=== PATIENT | female | born 1990 | race Caucasian/White ===

== ENCOUNTER 2016-12-12 16:23 | Emergency (ER) | payer MEDICAID ==
[~2016-12-12] VITALS: Ht 170.2 cm; Wt 100.0 kg
[2016-12-12 16:24] VITALS: BP 134/85; PULSE 102; RESP 20; TEMP 98.7; O2SAT 99
[2016-12-12] MEDS ORDERED: BACT800T5 PO (16:37)
[2016-12-12] MEDS ORDERED: CEPH-460 PO (16:37)
--- NOTE | 2016-12-12 16:37 | PD ---
HPI Chief Complaint: Bite or Sting Time Seen by Provider: 16:35 Travel History International Travel<30 days: No Contact w/Intl Traveler<30days: No Traveled to known affect area: No History of Present Illness HPI 26 year-old female presents to emergency department for evaluation of a painful lesion in her left groin. Patient states that she noticed 2 days ago. She thought maybe she had been bitten by an insect. He developed a purulent head and she ruptured this. She has expressed a large amount of purulent drainage from this. It is no longer fluctuant. Denies any fever or chills. Denies any injury. Denies any abdominal pain, nausea, vomiting. No other symptoms to report. PFSH Past Medical History Medical History: Denies Significant Hx ?: Not Social History Tobacco Use: Yes Allergies-Medications (Allergen,Severity, Reaction): Coded Allergies: No Known Allergies (Unverified , 12/12/16) Reported Meds & Prescriptions Reported Meds & Active Scripts Active Keflex (Cephalexin) 500 Mg Cap 500 Mg PO Q6H 5 Days Bactrim DS (Sulfamethoxazole-Trimethoprim) 800-160 Mg Tab 1 Tab PO BID Review of Systems Except as stated in HPI: all other systems reviewed are Neg Physical Exam Narrative GENERAL: Well-nourished, well-developed female patient in no acute distress. SKIN: Focused skin assessment warm/dry. There is a 10 cm in diameter area of erythema in the left inguinal area. There is no significant induration. There is a lesion at the center of this that is open,. I am unable to drain any additional fluid from this. There is no fluctuance to the area. Is marked force further assessment. HEAD: Normocephalic. EYES: No scleral icterus. No injection or drainage. NECK: Supple, trachea midline. No JVD or lymphadenopathy. CARDIOVASCULAR: Regular rate and rhythm without murmurs, gallops, or rubs. RESPIRATORY: Breath sounds equal bilaterally. No accessory muscle use. GASTROINTESTINAL: Abdomen soft, non-tender, nondistended. MUSCULOSKELETAL: No cyanosis, or edema. BACK: Nontender without obvious deformity. No CVA tenderness. Data Data Last Documented VS Vital Signs Date Time Temp Pulse Resp B/P Pulse Ox O2 Delivery O2 Flow Rate FiO2 12/12/16 16:24 98.7 102 20 134/85 99 Room Air Orders Wound Culture And Gram Stain (12/12/16 16:37) [facility] Medical Decision Making Medical Screen Exam Complete: Yes Emergency Medical Condition: Yes Medical Record Reviewed: Yes Differential Diagnosis Cellulitis versus local reaction versus abscess Narrative Course 26 year-old female presents to emergency department for evaluation of lesion her left groin. Physical exam appears to be an abscess that has already drained. Patient will be started on oral antibiotics. She is counseled on care. She agrees to return immediately with any acute worsening of symptoms. Diagnosis Primary Impression: Abscess of left groin Referrals: Primary Care Physician Patient Instructions: Abscess Follow-up (ED), General Instructions Additional Instructions: Warm compresses to the affected area Do not squeeze the area Start antibiotic today and take them until they are all gone Return immediately with any acute worsening symptoms Med/Other Pt SpecificInfo: Prescription(s) given Scripts Cephalexin (Keflex)500 Mg [id number] Mg PO Q6H 5 Days Ref 0 Prov:Kamala Cody 12/12/16 Sulfamethoxazole-Trimethoprim (Bactrim DS)800-160 Mg Tab1 Tab PO BID #20 TAB Ref 0 Prov:Kamala Cody 12/12/16 Disposition: 01 DISCHARGE HOME Condition: Stable Kamala Cody Dec 12, 2016 16:37
== END 2016-12-12 16:51 | disposition home or self-care (01) ==
LOC: NEPK 16:23
DX: L02.214 Cutaneous abscess of groin (principal); Z79.899 Other long term (current) drug therapy; Z72.0 Tobacco use
CPT/HCPCS: 87070; 87107; 87205; 99284

== ENCOUNTER 2017-06-28 12:10 | Emergency (ER) | payer MEDICAID ==
[~2017-06-28 12:10] MED LIST: BACT800T5 PO; CEPH-460 PO
--- NOTE | 2017-06-28 14:57 | PD ---
HPI Chief Complaint abdominal pain Date Seen: Jun 28, 2017 Time Seen: 14:35 Travel History International Travel<30 Days: No Contact w/Intl Traveler<30Days: No Known Affected Area: No History of Present Illness HPI Ms. Roque is a 26-year-old presenting at 28/2 weeks by ultrasound conducted today for abdominal pain. She has not yet been able to establish care due to changes in insurance. She states that her abdominal pain started a few days ago in her lower abdomen. Worse with standing and walking. Says that the pain is off and on. She tried Advil. Also is constipated. No leakage of fluids, no contractions, no vaginal bleeding. She does endorse movement. Weeks Gestation: 28 Para: 1 : 2 History Past Medical History Medical History: Denies Significant Hx Past Surgical History Narrative Surgical Appendectomy at 18yo Family History Family History: Negative Social History Narrative Social History Lives with a friend with her daughter Works at [employer] No alcohol use Smokes 3-4 cigarettes a day Smoked marijuana 2 weeks ago, but has not before or since Alcohol Use: No Tobacco Use: Yes Substance Abuse: Yes Allergies-Medications (Allergen,Severity, Reaction): Coded Allergies: No Known Allergies (Unverified , 12/12/16) Home Meds Active Scripts Cephalexin (Keflex) 500 Mg Cap, 500 MG PO Q6H for Infection for 5 Days, CAP 0 Refills Prov:Kamala Cody 12/12/16 Sulfamethoxazole-Trimethoprim (Bactrim DS) 800-160 Mg Tab, 1 TAB PO BID for Infection, #20 TAB 0 Refills Prov:Kamala Cody 12/12/16 Review of Systems General / Constitutional: No: Fever, Chills Eyes: No: Blurred Vision HENT: No: Headaches Cardiovascular: No: Chest Pain or Discomfort Respiratory: No: Cough, Short of Breath Gastrointestinal: Constipation, No: Nausea, Vomiting, Diarrhea Genitourinary: No: Dysuria Musculoskeletal: No: Weakness Skin: No Rash Neurologic: No: Dizziness Physical Exam Narrative GENERAL: Well-nourished, well-developed patient. SKIN: Warm and dry. HEAD: Normocephalic and atraumatic. EYES: No scleral icterus. No injection or drainage. ENT: No nasal drainage noted. Mucous membranes pink. Airway patent. NECK: Supple, trachea midline. No JVD. CARDIOVASCULAR: Regular rate and rhythm without murmurs, gallops, or rubs. RESPIRATORY: Breath sounds equal bilaterally. No accessory muscle use. BREASTS: Bilateral exam showed no masses , no retractions, no nipple discharge. ABDOMEN/GI: Abdomen soft, non-tender, bowel sounds present, no rebound, no guarding Gravid to 28 weeks size GENITOURINARY: External Genitalia: intact and normal in appearance Cervix: posterior, high Dilatation: 0 Effacement: 0 Station: -3 Membranes: intact Uterine Contractions: none FHT's: Category: 1 Baseline: 150s Reactive: yes Variability: moderate Decels: none EXTREMITIES: No cyanosis or edema. BACK: Nontender without obvious deformity. No CVA tenderness. NEUROLOGICAL: Awake and alert. Motor and sensory grossly within normal limits. Five out of 5 muscle strength in all muscle groups. Normal speech. Data Data Vital Signs Reviewed: Yes Orders Orders Vital Signs (Adult) .ON ADMISSION (06/28/17 13:08) ^ Labor Status (06/28/17 13:08) ^ Non Stress Test (06/28/17 13:08) Us Ob Pelvis >14 Wks Fetus (06/28/17 13:08) MDM Plan 26-year-old at 28/2 presenting with abdominal pain. Due to the description of the pain is most likely round ligament pain. -Due to no care conducted OB US- sets LES to September 18, 2017. Patient is now 28/2 gestation. BPP 8/8 -Cervix is closed, thick, high -Gave information to establish care at [facility] -Advised patient about proper hydration -Advised her to use Colace to help soften stools -Encouraged patient to quit smoking Diagnosis Diagnosis: Primary Impression: Round ligament pain Disposition: DISCHARGE HOME Condition: Stable Alanis Souza MD R1 Jun 28, 2017 14:57
== END 2017-06-28 15:44 | disposition home or self-care (01) ==
LOC: HOBED 12:10
DX: O26.893 Other specified pregnancy related conditions, third trimester (principal); R10.2 Pelvic and perineal pain; O09.33 Supervision of pregnancy with insufficient antenatal care, third trimester; O99.333 Smoking (tobacco) complicating pregnancy, third trimester; F17.210 Nicotine dependence, cigarettes, uncomplicated; Z3A.28 28 weeks gestation of pregnancy
CPT/HCPCS: 76805

== ENCOUNTER 2017-09-23 11:14 | Emergency (ER) | payer MEDICAID ==
[~2017-09-23] VITALS: Ht 170.2 cm; Wt 104.3 kg
--- NOTE | 2017-09-23 11:25 | PD ---
HPI Chief Complaint Possible ROM Date Seen: Sep 23, 2017 Travel History International Travel<30 Days: No Contact w/Intl Traveler<30Days: No Known Affected Area: No History of Present Illness HPI The patient is a 26 year old at 40/5 weeks gestation based on an US done on 07/02 presenting to OB triage due to possible ROM. The patient states she had an episode of clear leakage of fluid this past Saturday night after voiding. She states she has not had further leakage of fluid since then. She denies contractions. Endorses +FM. She denies abnormal vaginal discharge or vaginal bleeding. She specifically denies fevers, chest pain, dyspnea, cough. She has had no care this . Her first was about 6 years ago resulting in a term vaginal delivery. Para: 1 : 2 History Past Medical History Medical History: Denies Significant Hx Obstetric History Obstetric History Prior about 6 years ago resulting in a uncomplicated term vaginal delivery Past Surgical History Narrative Surgical Appendectomy at 18yo Family History Family History: Negative Social History Narrative Social History Lives with a friend with her daughter Works at [employer] No alcohol use Smokes 3-4 cigarettes a day Smoked marijuana 2 weeks ago, but has not before or since Alcohol Use: No Tobacco Use: Yes Substance Abuse: No Allergies-Medications (Allergen,Severity, Reaction): Coded Allergies: No Known Allergies (Unverified , 12/12/16) Home Meds Reported Medications Ranitidine (Zantac) 150 Mg Tab, 150 MG PO DAILY for Reduce Stomach Acid, #30 TAB 0 Refills 09/23/17 Discontinued Scripts Cephalexin (Keflex) 500 Mg Cap, 500 MG PO Q6H for Infection for 5 Days, CAP 0 Refills Prov:Kamala Cody 12/12/16 Sulfamethoxazole-Trimethoprim (Bactrim DS) 800-160 Mg Tab, 1 TAB PO BID for Infection, #20 TAB 0 Refills Prov:Kamala Cody 12/12/16 Review of Systems Except as stated in HPI: all other systems reviewed are Neg Physical Exam Narrative GENERAL: Well-nourished, well-developed patient. SKIN: Warm and dry. HEAD: Normocephalic and atraumatic. EYES: No scleral icterus. No injection or drainage. ENT: No nasal drainage noted. Mucous membranes pink. Airway patent. NECK: Supple, trachea midline. No JVD. CARDIOVASCULAR: Regular rate and rhythm without murmurs, gallops, or rubs. RESPIRATORY: Breath sounds equal bilaterally. No accessory muscle use. ABDOMEN/GI: Abdomen soft, non-tender, bowel sounds present, no rebound, no guarding Gravid to 40 weeks size GENITOURINARY: External Genitalia: intact and normal in appearance Cervix: posterior Dilatation: closed Effacement: thick Station: High Presentation: [-] Membranes: intact Uterine Contractions: none FHT's: Category: I Baseline: 140s Reactive: +accels Variability: moderate Decels: none noted EXTREMITIES: No cyanosis or edema. BACK: Nontender without obvious deformity. No CVA tenderness. NEUROLOGICAL: Awake and alert. Motor and sensory grossly within normal limits. Normal speech. Data Data Vital Signs Reviewed: Yes [facility] Medical Record Reviewed: Yes Plan 26 year old at 40/5 weeks gestation with no care presented to OB triage with complaints of possible ROM. 1. IUP - Category I tracing - No contractions on tocometer - Cervix: closed, long and thick - Bedside ultrasound performed by Dr. Juarez demonstrated vertex presentation - Amnisure negative - Labor precautions reviewed with patient and patient instructed on when to return to the OB ED 2. No care - Will draw labs - Check rapid GBS - Informed patient that if she does go into spontaneous labor and deliver by next Saturday to present back to OB triage for an induction of labor. Patient was instructed to come back sooner at anytime if needed - Addendum: The patient did not provide enough of a urine sample in order to run GC&chlamydia PCR via urine and left home prior to re-obtaining a sample for this. Plan to recheck if patient presents back to OB triage or on next Saturday when returning for induction of labor if not seen in spontaneous labor prior to then. dw Dr. Fu and Dr. Hardy Diagnosis Diagnosis: Primary Impression: 40 weeks gestation of Disposition: DISCHARGE HOME Condition: Stable Chencho Lopez MD R2 Sep 23, 2017 11:25
[2017-09-23 11:36] VITALS: BP 148/76; PULSE 110
[2017-09-23 11:52] VITALS: TEMP 98.3
[2017-09-23 11:54] VITALS: BP 157/81; PULSE 94
[2017-09-23] MEDS ORDERED: ZANT150T2 PO (11:57)
[2017-09-23 12:31] LABS: AUTOMATED NEUTROPHIL # 7.1 TH/MM3 (1.8-7.7); BASOPHIL % 0.3 % (0.0-2.0); EOSINOPHIL # 0.1 TH/MM3 (0-0.4); EOSINOPHIL % 0.7 % (0.0-4.0); HEMATOCRIT 36.4 % (35.0-46.0); HEMOGLOBIN 12.1 GM/DL (11.6-15.3); LYMPH % 14.9 % (9.0-44.0); LYMPHOCYTE # 1.4 TH/MM3 (1.0-4.8); MEAN CELL VOLUME 83.3 FL (80.0-100.0); MEAN CORPUSCULAR HEMOGLOBIN 27.7 PG (27.0-34.0); MEAN CORPUSCULAR HGB CONC 33.3 % (32.0-36.0); MONO % 8.5 % (0.0-8.0); MONOCYTE # 0.8 TH/MM3 (0-0.9); NEUT % 75.6 % (16.0-70.0); PLATELET COUNT 299 TH/MM3 (150-450); RED BLOOD COUNT 4.38 MIL/MM3 (4.00-5.30); RED CELL DISTRIBUTION WIDTH 14.9 % (11.6-17.2); WHITE BLOOD COUNT 9.4 TH/MM3 (4.0-11.0)
[2017-09-23 12:58] LABS: BACTERIA, URINE OCC /hpf; BILIRUBIN, URINE NEG (NEG); BLOOD, URINE NEG (NEG); GLUCOSE,URINE NEG (NEG); KETONE, URINE NEG (NEG); MUCUS URINE FEW /lpf (OCC); NITRITE,URINE NEG (NEG); PH, URINE 6.5 (5.0-8.5); SQUAMOUS EPITHELIAL CELL URINE 10 /hpf (0-5); URINE COLOR YELLOW (YELLW/STRAW); URINE LEUKOCYTE ESTERASE SMALL (NEG)
== END 2017-09-23 13:38 | disposition home or self-care (01) ==
LOC: HOBED 11:14
DX: O26.893 Other specified pregnancy related conditions, third trimester (principal); O99.333 Smoking (tobacco) complicating pregnancy, third trimester; F17.210 Nicotine dependence, cigarettes, uncomplicated; O99.323 Drug use complicating pregnancy, third trimester; F12.90 Cannabis use, unspecified, uncomplicated; Z3A.40 40 weeks gestation of pregnancy
CPT/HCPCS: 36415; 59025; 76815; 80074; 81001; 84112; 85025; 86592; 86703; 86762; 86850; 86900; 86901; 87081

== ENCOUNTER 2017-09-30 05:45 | Inpatient (IN) | payer MEDICAID ==
[~2017-09-30] VITALS: Ht 170.2 cm; Wt 104.0 kg
[2017-09-30] VITALS (54 sets, daily range): BP systolic 61–145; BP diastolic 47–103; PULSE 68–117; RESP 16–21; TEMP 97.6–98.3
[~2017-09-30 05:45] MED LIST changes: -BACT800T5 PO; -CEPH-460 PO; +ZANT150T2 PO
[2017-09-30] MEDS ORDERED: LACTATED RINGER'S 1000 ML INJ 1,000 ML IV PRN (06:04)
[2017-09-30] MEDS ORDERED: LACTATED RINGER'S 1000 ML INJ 1,000 ML IV SCH (06:04)
[2017-09-30] MEDS ORDERED: MINERAL OIL 10 ML VIAL TOPICAL PRN (06:15)
[2017-09-30] MEDS ORDERED: OXYTOCIN 30 UNITS-500ML PREMIX 500 ML IV ONE (06:15)
[2017-09-30] MEDS ORDERED: CITRIC ACID-SODIUM CITRATE LIQ 30 ML UDC PO SCH (06:15)
[2017-09-30] MEDS ORDERED: SODIUM CHLORID 0.9% 500 ML INJ 500 ML IV PRN (06:15)
[2017-09-30] MEDS ORDERED: LIDOCAINE HCL 1% 50 ML VIAL I-DERMAL PRN (06:15)
[2017-09-30] MEDS ORDERED: LIDOCAINE HCL 1% 50 ML VIAL INFIL PRN (06:15)
[2017-09-30] MEDS ORDERED: SODIUM CHLOR 0.9% 1000 ML INJ 1,000 ML IV PRN (06:24)
[2017-09-30] MEDS ORDERED: PRENTAB7 PO (06:32)
--- NOTE | 2017-09-30 06:53 | HHI.HP ---
HPI Chief Complaint Here for induction of labor Date Seen: September 30, 2017 Time Seen: 06:40 Travel History International Travel<30 Days: No Contact w/Intl Traveler<30Days: No Known Affected Area: No History of Present Illness HPI Patient is 26-year-old 41-42 weeks here now for induction of labor due to postdates, patient said no regular care with this . She did have an ultrasound in June that dated her done elsewhere, she presented here week ago for possibly leaking fluid found to be intact at that time because she was overdue at that point gave her 1 week to go into labor which did not happen ,now she is 41 weeks 5 days . She is not kaden at this time and her NST is reactive Weeks Gestation: 41 Para: 1 : 2 History Obstetric History Obstetric History 1 vaginal delivery Past Surgical History Narrative Surgical Appendectomy Family History Family History: Social History Alcohol Use: No Tobacco Use: Yes Substance Abuse: No Allergies-Medications (Allergen,Severity, Reaction): Coded Allergies: No Known Allergies (Unverified Allergy, Unknown, 09/30/17) Home Meds Reported Medications Pnv No.95/Ferrous Fum/Folic AC ( Vitamins Tablet) 28 Mg Iron-800 Mcg Tablet, 1 PO DAILY 09/30/17 Ranitidine (Zantac) 150 Mg Tab, 150 MG PO DAILY for Reduce Stomach Acid, #30 TAB 0 Refills 09/23/17 Discontinued Scripts Cephalexin (Keflex) 500 Mg Cap, 500 MG PO Q6H for Infection for 5 Days, CAP 0 Refills Prov:Kamala Cody 12/12/16 Sulfamethoxazole-Trimethoprim (Bactrim DS) 800-160 Mg Tab, 1 TAB PO BID for Infection, #20 TAB 0 Refills Prov:Kamala Cody 12/12/16 Review of Systems General / Constitutional: No: Fever, Weight Gain, Chills, Other Eyes: No: Diploplia, Blurred Vision, Visual changes, Pain, Photophobia HENT: No: Headaches, Vertigo, Lightheadedness Cardiovascular: No: Irregular Rhythm, Chest Pain or Discomfort, Palpitations, Tachycardia, Syncope, Varicosities, Edema, Cyanosis Respiratory: No: Cough, Short of Breath, Other Gastrointestinal: No: Nausea, Vomiting, Diarrhea Genitourinary: No: Decreased Urinary Output, Oliguria Musculoskeletal: No: Limited ROM, Weakness, Cramping, Edema, Pain Skin: No Rash, No Itching, No Dryness, No Lumps, No Change in Pigmentation, No Change in Nails, No Alopecia, No Lesions Neurologic: No: Weakness, Dizziness, Syncope, Focal Abnormalities, Coordination Problem, Headache, Slurred Speech, Seizures Psychiatric: No: Depression, Suicidal Ideations, Homicidal Ideation Endocrine: No: Heat Intolerance, Cold Intolerance, Polydipsia, Polyuria, Other Physical Exam Vital Signs Date Time Temp Pulse Resp B/P (MAP) Pulse Ox O2 Delivery O2 Flow Rate FiO2 09/30/17 06:40 82 145/84 (104) 09/30/17 06:13 90 143/82 (102) 09/30/17 06:13 97.7 20 Narrative GENERAL: Well-nourished, well-developed obese patient. SKIN: Warm and dry. HEAD: Normocephalic and atraumatic. EYES: No scleral icterus. No injection or drainage. ENT: No nasal drainage noted. Mucous membranes pink. Airway patent. NECK: Supple, trachea midline. No JVD. CARDIOVASCULAR: Regular rate and rhythm without murmurs, gallops, or rubs. RESPIRATORY: Breath sounds equal bilaterally. No accessory muscle use. BREASTS: Bilateral exam showed no masses , no retractions, no nipple discharge. ABDOMEN/GI: Abdomen soft, non-tender, bowel sounds present, no rebound, no guarding Gravid to [-40] weeks size Fundal Height: [40-] GENITOURINARY: External Genitalia: intact and normal in appearance BUS glands: [-] Cervix: [-post] Dilatation: [3-] Effacement: [40-] Station: [-3] Presentation: [vtx-] Membranes: [intact ] Uterine Contractions: [none-] FHT's: Category: [1-] Baseline: [133-] Reactive: [-R] Variability: [mod-] Decels: [none-] EXTREMITIES: No cyanosis or edema. BACK: Nontender without obvious deformity. No CVA tenderness. NEUROLOGICAL: Awake and alert. Motor and sensory grossly within normal limits. Five out of 5 muscle strength in all muscle groups. Normal speech. Caprini VTE Risk Assessment Caprini VTE Risk Assessment: No/Low Risk (score <= 1) Caprini Risk Assessment Model Point Value = 1 Point Value = 2 Point Value = 3 Point Value = 5 Age 41-60 Minor surgery BMI > 25 kg/m2 Swollen legs Varicose veins or History of unexplained or recurrent spontaneous Oral contraceptives or hormone replacement Sepsis (< 1 month) Serious lung disease, including pneumonia (< 1 month) Abnormal pulmonary function Acute myocardial infarction Congestive heart failure (< 1 month) History of inflammatory bowel disease Medical patient at bed rest Age 61-74 Arthroscopic surgery Major open surgery (> 45 min) Laparoscopic surgery (> 45 min) Malignancy Confined to bed (> 72 hours) Immobilizing plaster cast Central venous access Age >= 75 History of VTE Family history of VTE Factor V Leiden Prothrombin [id number] Lupus anticoagulant Anticardiolipin antibodies Elevated serum homocysteine Heparin-induced thrombocytopenia Other congenital or acquired thrombophilia Stroke (< 1 month) Elective arthroplasty Hip, pelvis, or leg fracture Acute spinal cord injury (< 1 month) Prophylaxis Regimen Total Risk Factor Score Risk Level Prophylaxis Regimen 0-1 Low Early ambulation 2 Moderate Order ONE of the following: *Sequential Compression Device (SCD) *Heparin 5000 units SQ BID 3-4 Higher Order ONE of the following medications: *Heparin 5000 units SQ TID *Enoxaparin/Lovenox 40 mg SQ daily (WT < 150 kg, CrCl > 30 mL/min) *Enoxaparin/Lovenox 30 mg SQ daily (WT < 150 kg, CrCl > 10-29 mL/min) *Enoxaparin/Lovenox 30 mg SQ BID (WT < 150 kg, CrCl > 30 mL/min) AND/OR *Sequential Compression Device (SCD) 5 or more Highest Order ONE of the following medications: *Heparin 5000 units SQ TID (Preferred with Epidurals) *Enoxaparin/Lovenox 40 mg SQ daily (WT < 150 kg, CrCl > 30 mL/min) *Enoxaparin/Lovenox 30 mg SQ daily (WT < 150 kg, CrCl > 10-29 mL/min) *Enoxaparin/Lovenox 30 mg SQ BID (WT < 150 kg, CrCl > 30 mL/min) AND *Sequential Compression Device (SCD) Data Data Orders Orders Admit To Inpatient (09/30/17 ) Vital Signs (Adult) .Per protocol (09/30/17 06:04) Heart (09/30/17 06:04) Amnioinfusion (09/30/17 06:04) Urinary Catheter Management .ONCE (09/30/17 06:04) Lactated Ringer's 1000 Ml Inj (Lr 1000 M (09/30/17 06:04) Lactated Ringer's 1000 Ml Inj (Lr 1000 M (09/30/17 06:04) Sodium Chlorid 0.9% 500 Ml Inj (Ns 500 M (09/30/17 06:15) Sodium Chlor 0.9% 1000 Ml Inj (Ns 1000 M (09/30/17 06:24) Lidocaine 1% Inj (50 Ml) (Xylocaine 1% I (09/30/17 06:15) Citric Acid-Sodium Citrate Liq (Bicitra (09/30/17 06:15) Fentanyl Inj (Fentanyl Inj) (09/30/17 06:15) Fentanyl Inj (Fentanyl Inj) (09/30/17 06:15) Complete Blood Count With Diff (09/30/17 06:04) Hold Clot (09/30/17 06:04) Abo/Rh Blood Type (09/30/17 06:04) Urinalysis - C+S If Indicated (09/30/17 06:04) Drug Screen, Random Urine (09/30/17 06:04) Ob/Psych Drug Screen, Urine (09/30/17 06:04) No Care Spec Serology (09/30/17 06:04) Resp Oxygen Non Rebreathe Mask (09/30/17 ) ^ Epidural / Intrathecal Infus (09/30/17 06:04) Oxytocin 30 Units-500ml Premix (Pitocin (09/30/17 06:15) Lidocaine 1% Inj (50 Ml) (Xylocaine 1% I (09/30/17 06:15) Light Mineral Oil (Muri-Lube Oil) (09/30/17 06:15) Specimen To Be Collected PRN (09/30/17 06:04) Specimen To Be Collected PRN (09/30/17 06:04) Group B Strep: Negative Assessment/Plan Assessment and Plan Patient is a 26 y/o WF at 41- 42 weeks with very little care[ essentially none] who now presents for induction due to postdates, NST reactive Plan-admit labor and delivery, begin induction with AROM and Pitocin, anticipate vaginal delivery Hernán Fu II, MD September 30, 2017 06:53
[2017-09-30 06:55] LABS: AUTOMATED NEUTROPHIL # 5.8 TH/MM3 (1.8-7.7); BASOPHIL % 0.4 % (0.0-2.0); EOSINOPHIL # 0.1 TH/MM3 (0-0.4); EOSINOPHIL % 1.5 % (0.0-4.0); HEMATOCRIT 36.3 % (35.0-46.0); HEMOGLOBIN 12.2 GM/DL (11.6-15.3); LYMPH % 19.7 % (9.0-44.0); LYMPHOCYTE # 1.7 TH/MM3 (1.0-4.8); MEAN CORPUSCULAR HEMOGLOBIN 28.4 PG (27.0-34.0); MEAN CORPUSCULAR HGB CONC 33.8 % (32.0-36.0); MEAN PLATELET VOLUME 8.2 FL (7.0-11.0); MONO % 9.4 % (0.0-8.0); MONOCYTE # 0.8 TH/MM3 (0-0.9); PLATELET COUNT 273 TH/MM3 (150-450); RED BLOOD COUNT 4.32 MIL/MM3 (4.00-5.30); RED CELL DISTRIBUTION WIDTH 14.9 % (11.6-17.2); WHITE BLOOD COUNT 8.5 TH/MM3 (4.0-11.0)
[2017-09-30 07:01] LABS: BACTERIA, URINE RARE /hpf; MUCUS URINE FEW /lpf (OCC); SQUAMOUS EPITHELIAL CELL URINE 7 /hpf (0-5)
[2017-09-30 07:06] LABS: BILIRUBIN, URINE NEG (NEG); BLOOD, URINE NEG (NEG); GLUCOSE,URINE NEG (NEG); KETONE, URINE NEG (NEG); NITRITE,URINE NEG (NEG); PH, URINE 6.5 (5.0-8.5); URINE COLOR YELLOW (YELLW/STRAW); URINE LEUKOCYTE ESTERASE MOD (NEG)
[2017-09-30] MEDS ORDERED: OXYTOCIN 30 UNITS-500ML PREMIX 500 ML IV PRN (07:30)
[2017-09-30] MEDS ORDERED: fentaNYL 2MCG-BUPIV 0.125% INJ 100 ML ONE (10:21)
[2017-09-30] MEDS ORDERED: LIDOCAINE 1%/EPINEPHrine 1:100,000 SOLN 30 ML VIAL ONE ×2 (10:39→10:41)
[2017-09-30] MEDS ORDERED: LIDOCAINE 2%/EPINEPHrine 1:100,000 20ML MDV ONE ×2 (10:40→10:54)
[2017-09-30] MEDS ORDERED: LIDOCAINE HCL 1% PF 5 ML AMPULE ONE (10:42)
--- NOTE | 2017-09-30 12:13 | PD.LABORPN ---
Subjective Subjective Patient doing well No complaints s/p epidural Objective Vital Signs Vital Signs Date Time Temp Pulse Resp B/P (MAP) Pulse Ox O2 Delivery O2 Flow Rate FiO2 09/30/17 12:01 89 134/83 (100) 09/30/17 11:31 84 130/86 (101) 09/30/17 11:27 18 09/30/17 11:25 91 09/30/17 11:25 139/91 (107) 09/30/17 11:21 68 127/81 (96) 09/30/17 11:20 68 09/30/17 11:16 75 125/98 (107) 09/30/17 11:15 76 09/30/17 11:11 81 135/88 (104) 09/30/17 11:10 72 09/30/17 11:06 74 140/79 (99) 09/30/17 11:05 78 09/30/17 11:01 78 133/81 (98) 09/30/17 11:00 78 09/30/17 10:56 74 128/92 (104) 09/30/17 10:55 84 09/30/17 10:52 76 133/81 (98) 09/30/17 10:50 71 09/30/17 10:49 70 116/94 (101) 09/30/17 10:46 75 135/86 (102) 09/30/17 10:45 88 09/30/17 10:41 83 141/75 (97) 09/30/17 10:40 20 09/30/17 10:40 81 09/30/17 10:35 86 09/30/17 10:30 85 09/30/17 10:25 86 09/30/17 09:49 86 137/82 (100) 09/30/17 09:22 77 133/74 (93) 09/30/17 08:52 73 134/83 (100) 09/30/17 08:51 18 09/30/17 07:51 97.6 18 09/30/17 07:50 81 138/73 (94) 09/30/17 06:40 82 145/84 (104) 09/30/17 06:13 90 143/82 (102) 09/30/17 06:13 97.7 20 Objective Pelvic Exam: Cervix: midpostiont Dilatation: 6 Effacement: 70 Station: -1 Presentation: vertex Membranes: AROM Uterine Contractions: every 4-5min FHT's: Category: 1 Baseline: 130s Reactive: yes Variability: moderate Decels: none Weeks Gestation: 41 Assessment/Plan Assessment and Plan Patient is a 26 y/o WF at 41- 42 weeks with very little care[ essentially none] in labor -Intrauterine , category 1, reassuring -Cervix: 6cm, 70% effacement, -2 station, vertex, midposition -s/p AROM and epidural -GBS unknown -Anticipate vaginal delivery dw Emmy Mccartney MD R1 September 30, 2017 12:13
[2017-09-30] MEDS ORDERED: LIDOCAINE HCL 1% PF 30 ML VIAL ONE (13:56)
--- NOTE | 2017-09-30 14:16 | PD.OB.DELI ---
Weeks gestation: 41 Anesthesia: Epidural Episiotomy: None Vaginal Delivery: Normal, Spontaneous Presentation: Occiput anterior Nuchal Cord: x1 Delayed cord clamping (45 sec): Yes Infant: Male Delivery date: September 30, 2017 Delivery time: 13:52 One Minute : 8 Five Minute : 9 Weight: 3670 grams Placenta: Spontaneous delivery, Intact, 3 vessel cord Laceration: 2 deg Repair: Chromic running Estimated blood loss: 200 cc Additional Information 26 year old now delivered via over an intact perineum. Apgars were 8/9 at 1/5 minutes respectively. Placenta delivered spontaneously intact, within 15 minutes. 2nd degree sulcus tear repaired using 2.0 chromic suture. EBL 200 cc. (Chencho Lopez MD R2) Collaborating MD Comments and repair of sulcus tear was directly supervised and without complications (Zaira Correa MD) Chencho Lopez MD R2 September 30, 2017 14:16 Zaira Correa MD October 01, 2017 09:49
[2017-09-30] MEDS ORDERED: ALUMINUM/MAGNESIUM/SIMETH 30 ML CUP PO PRN (15:15)
[2017-09-30] MEDS ORDERED: DOCUSATE SODIUM 50 MG/SENNA 8.6 MG TAB PO PRN (15:15)
[2017-09-30] MEDS ORDERED: SODIUM CHLORIDE 0.9% FLUSH 10 ML FLUSH IV FLUSH PRN (15:15)
[2017-09-30] MEDS ORDERED: ONDANSETRON ODT 4 MG TAB PO PRN (15:15)
[2017-09-30] MEDS ORDERED: OXYTOCIN 30 UNITS-500ML PREMIX 500 ML IV SCH (15:15)
[2017-09-30] MEDS ORDERED: WITCH HAZEL 50%/GLYCERIN 12.5% 40 PAD JAR TOPICAL PRN (15:15)
[2017-09-30] MEDS ORDERED: BENZOCAINE 20% TOPICAL SPRAY 60 ML CAN TOPICAL PRN (15:15)
[2017-09-30] MEDS ORDERED: diphenhydrAMINE HCL 25 MG CAP PO PRN (15:30)
[2017-09-30] MEDS ORDERED: DIPHTH/TETANUS/ACEL PERTUSSIS (BOOSTER) 0.5 ML VIAL/PFS IM ONE (16:00)
[2017-09-30] MEDS ORDERED: MEASLES, MUMPS, RUBELLA VACCINE 0.5 ML VIAL SQ ONE (16:00)
[2017-09-30] MEDS ORDERED: REMOVE OLD PATCH T-DERMAL SCH (18:00)
[2017-09-30] MEDS: NICOTINE 14 MG/24 HR PATCH T-DERMAL SCH (18:11)
[2017-09-30] MEDS: IBUPROFEN 800 MG TAB PO PRN (20:19)
[2017-09-30] MEDS ORDERED: ZOLPIDEM TARTRATE 5 MG TAB PO PRN (21:00)
[2017-09-30] MEDS ORDERED: SODIUM CHLORIDE 0.9% FLUSH 10 ML FLUSH IV FLUSH SCH (21:00)
[2017-09-30] MEDS: ACETAMINOPHEN 325 MG TAB PO PRN (22:23)
[2017-10-01] MEDS: IBUPROFEN 800 MG TAB PO PRN ×2 (04:48→13:17)
[2017-10-01] MEDS: ACETAMINOPHEN 325 MG TAB PO PRN ×2 (04:49→09:03)
[2017-10-01 08:20] VITALS: BP 132/69; PULSE 87; RESP 18; TEMP 97.9
--- NOTE | 2017-10-01 08:39 | HHI.OB ---
Subjective Remarks 26 year old female s/p at 41-42 wks gestation, PPD1. AFVSS. Patient reports she is feeling well. Bleeding is decreasing and pain is well- controlled. She is breast feeding and bonding well with baby. Ambulating without difficulties. She is tolerating a diet without nausea or vomiting. She has not had a bowel movement. She has passed gas. Denies chest pain, dysuria, shortness of breath, or calf pain. Objective Vitals/I&O Vital Signs Date Time Temp Pulse Resp B/P (MAP) Pulse Ox O2 Delivery O2 Flow Rate FiO2 09/30/17 20:03 98.1 117 21 143/70 (94) 09/30/17 16:10 98.3 79 16 129/69 (89) 09/30/17 15:22 81 129/72 (91) 09/30/17 15:21 18 09/30/17 14:46 82 141/71 (94) 09/30/17 14:31 78 130/60 (83) 09/30/17 14:27 78 130/72 (91) 09/30/17 14:26 98.1 18 09/30/17 14:15 91 117/52 (73) 09/30/17 14:14 18 09/30/17 13:31 100 78/62 (67) 09/30/17 13:20 79 61/47 (52) 09/30/17 13:16 82 138/103 (115) 09/30/17 13:11 18 09/30/17 13:01 85 132/77 (95) 09/30/17 12:46 72 115/53 (73) 09/30/17 12:31 68 121/55 (77) 09/30/17 12:19 18 09/30/17 12:16 88 135/89 (104) 09/30/17 12:01 89 134/83 (100) 09/30/17 11:31 84 130/86 (101) 09/30/17 11:30 97.8 09/30/17 11:27 18 09/30/17 11:25 91 09/30/17 11:25 139/91 (107) 09/30/17 11:21 68 127/81 (96) 09/30/17 11:20 68 09/30/17 11:16 75 125/98 (107) 09/30/17 11:15 76 09/30/17 11:11 81 135/88 (104) 09/30/17 11:10 72 09/30/17 11:06 74 140/79 (99) 09/30/17 11:05 78 09/30/17 11:01 78 133/81 (98) 09/30/17 11:00 78 09/30/17 10:56 74 128/92 (104) 09/30/17 10:55 84 09/30/17 10:52 76 133/81 (98) 09/30/17 10:50 71 09/30/17 10:49 70 116/94 (101) 09/30/17 10:46 75 135/86 (102) 09/30/17 10:45 88 09/30/17 10:41 83 141/75 (97) 09/30/17 10:40 20 09/30/17 10:40 81 09/30/17 10:35 86 09/30/17 10:30 85 09/30/17 10:25 86 09/30/17 09:49 86 137/82 (100) 09/30/17 09:22 77 133/74 (93) 09/30/17 08:52 73 134/83 (100) 09/30/17 08:51 18 Objective Remarks GENERAL: Well-nourished, well-developed patient. CARDIOVASCULAR: Regular rate and rhythm without murmurs, gallops, or rubs. RESPIRATORY: Breath sounds equal bilaterally. No accessory muscle use. ABDOMEN/GI: Abdomen soft, non-tender. Fundus: Firm, non-tender at umbilicus. GENITOURINARY: Light to moderate bleeding. EXTREMITIES: No cyanosis or edema, non-tender, without signs of DVT. Medications and IVs Current Medications Medications (Trade) Dose Ordered Sig/Dennys Route Start Time Stop Time Status Last Admin (NS Flush) 2 ml BID IV FLUSH 09/30/17 21:00 (NS Flush) 2 ml UNSCH PRN IV FLUSH 09/30/17 15:15 (Tylenol) 650 mg Q4H PRN PO 09/30/17 15:15 10/01/17 04:49 (Motrin) 800 mg Q8H PRN PO 09/30/17 15:15 10/01/17 04:48 (Americaine 20% Top Spr) 1 spray Q4H PRN TOPICAL 09/30/17 15:15 09/30/17 18:11 (Tucks Pads) 1 applic QID PRN TOPICAL 09/30/17 15:15 09/30/17 18:11 (Sadia-Colace) 2 tab Q12H PRN PO 09/30/17 15:15 (Ambien) 5 mg HS PRN PO 09/30/17 21:00 (Mag-Al Plus Susp Liq) 15 ml Q8H PRN PO 09/30/17 15:15 (Zofran Odt) 4 mg Q6H PRN PO 09/30/17 15:15 (Benadryl) 25 mg Q4H PRN PO 09/30/17 15:30 09/30/17 16:05 (Habitrol 14 Mg Patch.24 Hr) 1 patch DAILY T-DERMAL 09/30/17 18:00 09/30/17 18:11 Miscellaneous Information 1 DAILY T-DERMAL 09/30/17 18:00 Assessment/Plan Assessment and Plan 26 yo female s/p , PPD 1, hx of no care - AFVSS - Continue routine care - Motrin PRN pain - Encourage OOB - Pelvic rest x 6 wks. - Contraception: Undecided - Anticipate D/C today or tomorrow Emmy Solano Dr., MD R1 October 01, 2017 08:39
[2017-10-01] MEDS: NICOTINE 14 MG/24 HR PATCH T-DERMAL SCH (09:03)
[2017-10-01] MEDS ORDERED: ACETAMINOPHEN/HYDROcodone 325 MG/5 MG TAB PO ONE (11:30)
[2017-10-01] MEDS ORDERED: IBUP1TAB7 PO (14:49)
[2017-10-01] MEDS ORDERED: PERI PO (14:49)
--- NOTE | 2017-10-01 14:49 | HHI.DCPOC ---
Discharge Care Plan Diagnosis: (1) Normal vaginal delivery Report Symptoms to Your Doctor -Temperature above 100.5 degrees -Redness, of incision or excessive or foul smelling drainage -Unusual pain or calf pain -Increased vaginal bleeding -Painful or difficulty urinating -Feelings of extreme sadness or anxiety after 2 weeks Goals to Promote Your Health * To prevent worsening of your condition and complications * To maintain your health at the optimal level Directions to Meet Your Goals Take your medications as prescribed Follow your dietary instruction Follow activity as directed Ensure plenty of rest for recovery Drink fluids for hydration Keep your appointments as scheduled Take your immunizations and boosters as scheduled If your symptoms worsen call your PCP, if no PCP go to Urgent Care Center or Emergency Room Smoking is Dangerous to Your Health. Avoid second hand smoke Call the 24-hour crisis hotline for domestic abuse at Emmy Hardy MD R1 October 01, 2017 14:49
== END 2017-10-01 15:43 | disposition home or self-care (01) | DRG 775 ==
LOC: H2EB 05:45 → H1EA 15:46
PROVIDERS: ADMIT Obstetrics & Gynecology Maternal & Fetal Medicine; ATTEND Obstetrics & Gynecology Maternal & Fetal Medicine
PROC: 10E0XZZ Delivery of Products of Conception, External Approach (ICD-10-PCS; principal; 2017-09-30)
PROC: 0KQM0ZZ Repair Perineum Muscle, Open Approach (ICD-10-PCS; 2017-09-30)
PROC: 10907ZC Drainage of Amniotic Fluid, Therapeutic from Products of Conception, Via Natural or Artificial Opening (ICD-10-PCS; 2017-09-30)
PROC: 3E033VJ Introduction of Other Hormone into Peripheral Vein, Percutaneous Approach (ICD-10-PCS; 2017-09-30)
PROC: 3E0R3BZ Introduction of Anesthetic Agent into Spinal Canal, Percutaneous Approach (ICD-10-PCS; 2017-09-30)
PROC: 00HU33Z Insertion of Infusion Device into Spinal Canal, Percutaneous Approach (ICD-10-PCS; 2017-09-30)
DX: O48.0 Post-term pregnancy (principal); O99.334 Smoking (tobacco) complicating childbirth; O70.1 Second degree perineal laceration during delivery; Z37.0 Single live birth; Z3A.41 41 weeks gestation of pregnancy
CPT/HCPCS: 59025; 80307; 81001; 85025; 86900; 86901; 87491; 87591; 90715; G0481; J2590; J3010; J7120